=== PATIENT | male | born 1990 | race Caucasian/White ===

== ENCOUNTER 2016-12-23 19:07 | Emergency (ER) | payer OTHER ==
[2016-12-23] MEDS ORDERED: cefTRIAXone 1 GM VIAL IM STA (21:30)
[2016-12-23] MEDS ORDERED: cefTRIAXone 1 GM VIAL ONE (21:34)
[2016-12-23] MEDS ORDERED: LIDOCAINE 1% 2 ML VIAL ONE (21:35)
== END 2016-12-23 21:59 | disposition home or self-care (01) ==
DX: N45.1 Epididymitis (principal); N50.3 Cyst of epididymis; R03.0 Elevated blood-pressure reading, without diagnosis of hypertension

== ENCOUNTER 2017-02-02 19:32 | Emergency (ER) | payer OTHER ==
[2017-02-02 19:37] VITALS: BP 142/79
--- NOTE | 2017-02-02 20:09 | ED Physician Documentation ---
PD HPI BACK PAIN - Stated complaint Stated Complaint: BACK PX - Chief complaint Chief Complaint: Back Pain - History of Present Illness Timing - onset: Chronic Timing - details: Intermittant, Waxing and waning Location: Lower Quality: Pain Associated symptoms: Weakness. No: Fever, Numbness, Incontinent of urine, Unable to urinate, Hematuria, Incontinent of stool - Additional information Additional information: patient complains of chronic low back pain, for which she has been evaluated at [facility]. Patient presents to [facility] because of multiple episodes of his back giving out, inpatients words, causing him to fall to the ground. He denies weakness, denies urinary incontinence, denies fecal incontinence. He denies having any significant pain at this time. Review of Systems Musculoskeletal: reports: Back pain. denies: Neck pain Neurologic: reports: Focal weakness (resolved). denies: Numbness PD PAST MEDICAL HISTORY - Past Medical History Past Medical History: Yes Respiratory: Asthma Other Past Medical History: CARPAL TUNNEL - Past Surgical History Past Surgical History: Yes - Present Medications Home Medications: Ambulatory Orders Medication Instructions Recorded Confirmed Albuterol 0 puffs PO PRN PRN 12/23/16 02/02/17 Loratadine [Claritin] 10 mg PO DAILY 12/23/16 02/02/17 Fluticasone [Flonase] 1 spray PO DAILY 02/02/17 02/02/17 Ibuprofen 400 mg PO Q6HR PRN 02/02/17 02/02/17 Naproxen 0 mg PO BID PRN 02/02/17 02/02/17 - Allergies Allergies/Adverse Reactions: Allergies Allergy/AdvReac Type Severity Reaction Status Date / Time No Known Drug Allergies Allergy Verified 02/02/17 19:37 - Social History Does the pt smoke?: No Smoking Status: Never smoker Does the pt drink ETOH?: No Does the pt have substance abuse?: No - Immunizations Immunizations are current?: Yes - POLST Patient has POLST: No PD ED PE NORMAL - Vitals Vital signs reviewed: Yes - General General: Alert and oriented X 3, No acute distress, Well developed/nourished, Other - Cardiac Cardiac: RRR, No murmur - Back Back: No CVA TTP, No spinal TTP - Derm Derm: Normal color, Warm and dry - Extremities Extremities: No edema - Neuro Neuro: Alert and oriented X 3, screen printer 2-12 intact, No motor deficit, No sensory deficit Results - Vitals Vitals: Oxygen O2 Source Room air PD MEDICAL DECISION MAKING - ED course Complexity details: considered differential, d/w patient Departure - Departure Disposition: 01 Home, Self Care Clinical Impression: Back pain Condition: Good Instructions: ED Neck Back Pain General Follow-Up: ALEXEY Gabriel [Provider Group] Discharge Date/Time: 02/02/17 20:30
== END 2017-02-02 20:30 | disposition home or self-care (01) ==
LOC: ED 19:32
DX: M54.5 Low back pain (principal); J45.909 Unspecified asthma, uncomplicated
CPT/HCPCS: 99282; 99283